=== PATIENT | female | born 2000 | race Caucasian/White ===

== ENCOUNTER 2025-04-21 13:15 | Emergency (ER) | payer SELFPAY ==
[~2025-04-21] VITALS: Ht 162.6 cm; Wt 64.0 kg
[2025-04-21 13:21] VITALS: O2SAT 100
[2025-04-21 14:27] LABS: HCG SCREEN NEGATIVE
[2025-04-21 14:36] LABS: BASOPHILS % 0.7 % (0.0-2.0); CREATININE 0.8 mg/dL (0.6-1.0); EOSINOPHILS % 5.2 % (0.0-5.0); HEMATOCRIT. 39.3 % (36.0-48.0); HEMOGLOBIN. 13.1 g/dL (12.0-16.0); LYMPHOCYTES % 26.1 % (20.0-50.0); MEAN PLATELET VOLUME 8.4 fl (7.4-10.4); MONOCYTES % 5.2 % (2.0-8.0); NEUTROPHILS % 62.8 % (40.0-76.0); PLATELET 282 x1000/uL (130-400); RED BLOOD CELL COUNT 4.25 mill/uL (4.2-5.4); RED CELL DISTRIBUTION WIDTH 12.1 % (11.6-14.6); UREA NITROGEN BLOOD 9 mg/dL (9-23)
[2025-04-21 14:37] LABS: TROPONIN I HIGH SENSITIVITY < 4 ng/L (3.0-34)
[2025-04-21] MEDS: ONDANSETRON HCL 4MG/2ML INJ IV ONE (14:37)
[2025-04-21] MEDS: SODIUM CHLORIDE 0.9% 1,000 ML IV ONE (14:37)
[2025-04-21] MEDS: KETOROLAC 15MG/ML VIAL IV ONE (14:37)
[2025-04-21 17:08] VITALS: BP 107/60; PULSE 70; RESP 17; TEMP 36.7; O2SAT 99
== END 2025-04-21 17:25 | disposition home or self-care (01) ==
LOC: ER 13:15
DX: S09.90XA Unspecified injury of head, initial encounter (principal); R11.0 Nausea; R55 Syncope and collapse; J45.909 Unspecified asthma, uncomplicated; W22.8XXA Striking against or struck by other objects, initial encounter; Y93.89 Activity, other specified; Y92.89 Other specified places as the place of occurrence of the external cause; Y99.8 Other external cause status
CPT/HCPCS: 99285; 96374; 70450; 96361; 96375; 80048; 84703; 85025; 84484; 36415; 93005; J1885; J2405; J7030